=== PATIENT | female | born 1985 | race Caucasian/White ===

== ENCOUNTER → 2016-12-10 | Outpatient (CLI) | payer OTHER ==
[~2016-12-10] MED LIST: ALPR-475 PO; AZIT500T77 PO; CITA20TA9 PO; METO25TA2 PO
[2016-12-10 09:26] LABS: ASPARTATE AMINO TRANSFERASE 79 U/L (15-37); BLOOD UREA NITROGEN 14 mg/dL (7-18)
== END | disposition home or self-care (01) ==
LOC: LAB 08:50
PROVIDERS: ATTEND Physician Assistant
DX: E78.1 Pure hyperglyceridemia (principal); E55.9 Vitamin D deficiency, unspecified; F41.9 Anxiety disorder, unspecified
CPT/HCPCS: 36415; 80053; 80061; 82306; 85025

== ENCOUNTER → 2018-02-09 | Outpatient (CLI) | payer OTHER ==
[~2018-02-09] MED LIST changes: +AZIT500T5 PO; -AZIT500T77 PO
[2018-02-09 08:21] LABS: BASOPHILS # (AUTO) 0.05 x10^3/uL (0-0.1); BASOPHILS % (AUTO) 1 % (0-1); EOSINOPHILS # (AUTO) 0.22 x10^3/uL (0-0.4); EOSINOPHILS % (AUTO) 3 % (1-7); LYMPHOCYTES % (AUTO) 29 % (22-44); MD NO; MEAN CORPUSCULAR HEMOGLOBIN 31.3 pg (27.0-34.8); MEAN CORPUSCULAR VOLUME 91.9 fL (80-100); MONOCYTES # (AUTO) 0.65 x10^3/uL (0.2-0.8); MONOCYTES % (AUTO) 9 % (2-9); NEUTROPHILS # (AUTO) 4.19 x10^3/uL (1.8-6.8); NEUTROPHILS % (AUTO) 58 % (42-75); PLATELET COUNT 257 x10^3/uL (130-400); RED BLOOD COUNT 4.79 x10^6/uL (3.82-5.3); RED CELL DISTRIBUTION WIDTH 12.2 % (9.6-15.2)
[2018-02-09 08:29] LABS: ALANINE AMINOTRANSFERASE 56 U/L (12-78); ALBUMIN 3.9 g/dL (3.4-5.0); ANION GAP 6 mmol/L (5-15); CALCIUM 8.5 mg/dL (8.5-10.1); CHLORIDE 106 mmol/L (98-107); CHOLESTEROL, TOTAL 203 mg/dL (140-239); CREATININE 0.82 mg/dL (0.55-1.02)
[2018-02-09 08:38] LABS: ALKALINE PHOSPHATASE 58 U/L (45-117); BILIRUBIN,TOTAL 0.4 mg/dL (0.2-1.0); CHOL/HDL RATIO 2.6; FREE T4 (FREE THYROXINE) 0.88 ng/dL (0.76-1.46); HDL CHOL % 39 % (28-40); HDL CHOLESTEROL (DIRECT) 79 mg/dL (40-60); LDL CHOLESTEROL,CALCULATED 107 mg/dL (54-169); LDL/HDL RATIO 1.4 (0.5-3.0); TOTAL PROTEIN 7.5 g/dL (6.4-8.2); TRIGLYCERIDES 86 mg/dL (50-200); VLDL CHOLESTEROL 17 mg/dL (0-25)
== END | disposition home or self-care (01) ==
LOC: LAB 08:07
PROVIDERS: ATTEND Nurse Practitioner Family
DX: F41.9 Anxiety disorder, unspecified (principal)
CPT/HCPCS: 36415; 80053; 80061; 84439; 84443; 85025

== ENCOUNTER → 2018-08-22 | Outpatient (CLI) | payer OTHER ==
[2018-08-22 09:30] LABS: BASOPHILS # (AUTO) 0.05 x10^3/uL (0-0.1); BASOPHILS % (AUTO) 1 % (0-1); EOSINOPHILS # (AUTO) 0.17 x10^3/uL (0-0.4); EOSINOPHILS % (AUTO) 2 % (1-7); LYMPHOCYTES % (AUTO) 31 % (22-44); MD NO; MEAN CORPUSCULAR HEMOGLOBIN 31.6 pg (27.0-34.8); MEAN CORPUSCULAR HGB CONC 33.8 g/dL (32.4-35.8); MEAN CORPUSCULAR VOLUME 93.5 fL (80-100); MEAN PLATELET VOLUME 7.2 fL (7.4-10.4); MONOCYTES # (AUTO) 0.46 x10^3/uL (0.2-0.8); MONOCYTES % (AUTO) 5 % (2-9); NEUTROPHILS # (AUTO) 5.12 x10^3/uL (1.8-6.8); NEUTROPHILS % (AUTO) 61 % (42-75); PLATELET COUNT 289 x10^3/uL (130-400); RED BLOOD COUNT 4.59 x10^6/uL (3.82-5.3); RED CELL DISTRIBUTION WIDTH 12.1 % (9.6-15.2)
[2018-08-22 09:43] LABS: ALBUMIN 3.4 g/dL (3.4-5.0); ANION GAP 8 mmol/L (5-15); CALCIUM 8.5 mg/dL (8.5-10.1); CHLORIDE 108 mmol/L (98-107); CREATININE 0.75 mg/dL (0.55-1.02)
[2018-08-22 09:48] LABS: ALANINE AMINOTRANSFERASE 58 U/L (12-78); ALKALINE PHOSPHATASE 61 U/L (45-117); BILIRUBIN,TOTAL 0.2 mg/dL (0.2-1.0); CHOL/HDL RATIO 3.4; CHOLESTEROL, TOTAL 222 mg/dL (140-239); HDL CHOL % 29 % (28-40); HDL CHOLESTEROL (DIRECT) 65 mg/dL (40-60); LDL CHOLESTEROL,CALCULATED 115 mg/dL (54-169); LDL/HDL RATIO 1.8 (0.5-3.0); TOTAL PROTEIN 7.2 g/dL (6.4-8.2); TRIGLYCERIDES 209 mg/dL (50-200); VLDL CHOLESTEROL 42 mg/dL (0-25)
== END | disposition home or self-care (01) ==
LOC: LAB 09:14
PROVIDERS: ATTEND Nurse Practitioner Family
DX: F41.9 Anxiety disorder, unspecified (principal)
CPT/HCPCS: 36415; 80053; 80061; 85025